=== PATIENT | male | born 1975 | race Caucasian/White ===

== ENCOUNTER 2018-12-20 14:15 | Emergency (ER) | payer SELFPAY ==
[~2018-12-20] VITALS: Ht 188 cm; Wt 97.8 kg
[2018-12-20 14:17] VITALS: BP 125/90
== END 2018-12-20 15:02 | disposition home or self-care (01) ==
LOC: ED 14:40
DX: S01.21XD Laceration without foreign body of nose, subsequent encounter (principal); I10 Essential (primary) hypertension; X58.XXXD Exposure to other specified factors, subsequent encounter
CPT/HCPCS: 99281